=== PATIENT | female | born 1975 | race Caucasian/White ===

== ENCOUNTER → 2017-01-10 | Outpatient (CLI) | payer BC ==
--- NOTE | 2017-01-11 10:19 | MM ---
Reason for exam: screening (asymptomatic). Last mammogram was performed 6 months ago. History: Took hormonal contraceptives for 14 years. Physical Findings: A clinical breast exam by your physician is recommended on an annual basis and results should be correlated with mammographic findings. MG 3D Screening Mammo W/Cad Bilateral CC and MLO view(s) were taken. Prior study comparison: July 05, 2016, right breast MG 3d diag mammo w/cad RT. December 29, 2015, right breast MG 3d work up w/cad RT. There are scattered fibroglandular densities. Focal asymmetry inner right CC view is stable. No significant changes when compared with prior studies. ASSESSMENT: Benign, BI-RAD 2 RECOMMENDATION: Routine screening mammogram of both breasts in 1 year.
== END | disposition home or self-care (01) ==
LOC: RADMAMWWP 09:01
PROVIDERS: ATTEND Obstetrics & Gynecology
DX: Z12.31 Encounter for screening mammogram for malignant neoplasm of breast (principal)
CPT/HCPCS: 77063; G0202

== ENCOUNTER → 2018-01-23 | Outpatient (CLI) | payer BC ==
--- NOTE | 2018-01-28 10:55 | MM ---
Reason for exam: screening (asymptomatic). Last mammogram was performed 1 year ago. History: Took hormonal contraceptives for 14 years. Physical Findings: A clinical breast exam by your physician is recommended on an annual basis and results should be correlated with mammographic findings. MG 3D Screening Mammo W/Cad Bilateral CC and MLO view(s) were taken. Prior study comparison: January 10, 2017, bilateral MG 3d screening mammo w/cad. July 05, 2016, right breast MG 3d diag mammo w/cad RT. There are scattered fibroglandular densities. No suspicious abnormality. No significant changes when compared with prior studies. ASSESSMENT: Negative, BI-RAD 1 RECOMMENDATION: Routine screening mammogram of both breasts in 1 year.
== END | disposition home or self-care (01) ==
LOC: RADMAMWWP 12:08
PROVIDERS: ATTEND Obstetrics & Gynecology
DX: Z12.31 Encounter for screening mammogram for malignant neoplasm of breast (principal)
CPT/HCPCS: 77063; 77067

== ENCOUNTER → 2019-01-29 | Outpatient (CLI) | payer BC ==
--- NOTE | 2019-01-30 11:05 | MM ---
Reason for exam: screening (asymptomatic). Last mammogram was performed 1 year ago. History: Took hormonal contraceptives for 14 years. Physical Findings: A clinical breast exam by your physician is recommended on an annual basis and results should be correlated with mammographic findings. MG 3D Screening Mammo W/Cad Bilateral CC and MLO view(s) were taken. Prior study comparison: January 23, 2018, bilateral MG 3d screening mammo w/cad. January 10, 2017, bilateral MG 3d screening mammo w/cad. There are scattered fibroglandular densities. There is no discrete abnormality. ASSESSMENT: Negative, BI-RAD 1 RECOMMENDATION: Routine screening mammogram of both breasts in 1 year.
== END | disposition home or self-care (01) ==
LOC: RADMAMWWP 08:09
PROVIDERS: ATTEND Obstetrics & Gynecology
DX: Z12.31 Encounter for screening mammogram for malignant neoplasm of breast (principal)
CPT/HCPCS: 77063; 77067

== ENCOUNTER → 2020-03-31 | Outpatient (CLI) | payer BC ==
--- NOTE | 2020-03-31 10:45 | XR ---
EXAMINATION TYPE: XR chest 2V DATE OF EXAM: 03/31/2020 CLINICAL HISTORY: Dyspnea. Right-sided chest pain a few weeks ago. TECHNIQUE: Frontal and lateral views of the chest are obtained. COMPARISON: None FINDINGS: The cardiomediastinal silhouette is within normal limits for size. Pulmonary vasculature i s normal. There is no focal air space opacity, pleural effusion, or pneumothorax seen. The osseous st ructures are intact. Degenerative changes of the spine. IMPRESSION: No acute cardiopulmonary process.
== END | disposition home or self-care (01) ==
LOC: RADXRMAIN 09:24
PROVIDERS: ATTEND Family Medicine
DX: R06.00 Dyspnea, unspecified (principal)
CPT/HCPCS: 71046

== ENCOUNTER → 2020-03-31 | Outpatient (CLI) | payer BC ==
--- NOTE | 2020-04-01 12:15 | MM ---
Reason for exam: screening (asymptomatic). Last mammogram was performed 1 year and 2 months ago. History: Taking hormonal contraceptives for 24 years. Physical Findings: A clinical breast exam by your physician is recommended on an annual basis and results should be correlated with mammographic findings. MG 3D Screening Mammo W/Cad Bilateral CC and MLO view(s) were taken. Prior study comparison: January 29, 2019, bilateral MG 3d screening mammo w/cad. January 23, 2018, bilateral MG 3d screening mammo w/cad. There are scattered fibroglandular densities. Benign appearing bilateral calcifications. ASSESSMENT: Benign, BI-RAD 2 RECOMMENDATION: Routine screening mammogram of both breasts in 1 year.
== END | disposition home or self-care (01) ==
LOC: RADMAMWWP 09:02
PROVIDERS: ATTEND Obstetrics & Gynecology
DX: Z12.31 Encounter for screening mammogram for malignant neoplasm of breast (principal)
CPT/HCPCS: 77063; 77067

== ENCOUNTER → 2020-05-27 | Outpatient (CLI) | payer BC ==
[2020-05-27 13:45] LABS: Basophils % (A) 1 %; Eosinophils # (A) 0.1 k/uL (0-0.7); Eosinophils % (A) 1 %; HCT 32.8 % (34.0-46.0); HGB 10.1 gm/dL (11.4-16.0); Hypochromasia Moderate; Lymphocytes # (A) 1.9 k/uL (1.0-4.8); Lymphocytes % (A) 26 %; MCH 24.7 pg (25.0-35.0); MCHC 30.7 g/dL (31.0-37.0); MCV 80.7 fL (80.0-100.0); Mean Platelet Volume 8.5; Monocytes # (A) 0.4 k/uL (0-1.0); Monocytes % (A) 6 %; Neutrophils # (A) 4.6 k/uL (1.3-7.7); Neutrophils % (A) 64 %; Platelet Count 278 k/uL (150-450); RBC 4.06 m/uL (3.80-5.40); RDW 14.8 % (11.5-15.5); WBC 7.2 k/uL (3.8-10.6)
== END | disposition home or self-care (01) ==
LOC: LABWHC1 13:00
PROVIDERS: ATTEND Obstetrics & Gynecology
DX: Z01.818 Encounter for other preprocedural examination (principal); N92.1 Excessive and frequent menstruation with irregular cycle
CPT/HCPCS: 36415; 85025

== ENCOUNTER → 2020-06-01 | Day surgery (SDC) | payer BC ==
[2020-05-26 14:08] VITALS: BMI 26.9
--- NOTE | 2020-05-31 14:37 | HP ---
HISTORY AND PHYSICAL HISTORY OF PRESENT ILLNESS: The patient is a 44-year-old 2, para 2-0-0-2, who presents with a history of significantly heavy bleeding as well as some irregular bleeding at this time as well. This has been ongoing for some time and the patient has requested definitive therapy with diagnostic hysteroscopy and NovaSure endometrial ablation. PAST MEDICAL HISTORY: Significant only for a history of kidney stones as well as occasional constipation. PAST SURGICAL HISTORY: Significant for a LEEP procedure in the past as well as lithotripsy. There were no anesthetic concerns at this point. OBSTETRICAL HISTORY: 2, para 2-0-0-2 with 2 term vaginal deliveries without complications. Method of contraception is vasectomy. GYNECOLOGIC HISTORY: Unremarkable with no history of any infections to include STDs. She has remote history of LEEP procedure for abnormal cervical findings as noted above. FAMILY HISTORY: Noncontributory. SOCIAL HISTORY: The patient is and works as a nurse at [employer]. She is a nonsmoker and denies any alcohol or any other social concerns. CURRENT MEDICATIONS: Include Apri daily for control of menorrhagia. She additionally takes a multivitamin daily as well as biotin daily. ALLERGIES: SULFA causes a rash. REVIEW OF SYSTEMS: Confined to history of present illness. PHYSICAL EXAMINATION: Vital signs are stable and the patient is afebrile. In general, this is a well- developed, well-nourished white female in no acute distress. Her heart has a regular rhythm and rate without murmur. Her lungs are clear to auscultation bilaterally in all tran. Her abdomen is nondistended, has normoactive bowel sounds, soft, nontender, without any palpable masses, hepatosplenomegaly, or hernias. Her extremities are without any cyanosis, clubbing, or edema and are nontender to palpation bilaterally. Pelvic examination demonstrates normal external genitalia and the BUS with normal vaginal mucosa and cervix. There is no cervical motion tenderness. Uterus is approximately 5 weeks in size, mid plane, mobile, nontender, normal in shape. The adnexa are normal and nontender without mass bilaterally. ASSESSMENT AND PLAN: Menometrorrhagia. After discussion of options for treatment, the patient has requested diagnostic hysteroscopy with NovaSure endometrial ablation. The risks and complications of the procedure have been discussed at length including the risks for bleeding, bleeding requiring transfusion, infection, injury to local structures to specifically include uterine perforation, Asherman syndrome, and potential subsequent hematometra. She understands all this and has agreed to proceed. We are scheduled for the morning of June 01, 2020 for the procedures as outlined above. MMODL / IJN: [id number] /
[~2020-06-01] MED LIST: ACETAMINOPHEN TAB 500 MG TAB ONE; ACETAMINOPHEN TAB 500 MG TAB PO ONE; Acetaminophen-Codeine 300-30mg TAB PO PRN; DEXAMETHASONE SOD PHOSPHATE 10 MG/ML 1 ML VIAL IV ONE; HYDROmorphone 0.5 MG/0.5 ML SYRINGE IVP PRN; IBUPROFEN 600 MG TAB PO PRN; KETOROLAC 15 MG/ML 1 ML VIAL IVP PRN; KETOROLAC 15 MG/ML 1 ML VIAL ONE; LACTATED RINGERS 1,000 ML IV ONE; LACTATED RINGERS 1,000 ML IV SCH; LIDOCAINE 1% (10MG/ML) FOR IV START INTRADERMA PRN; LIDOCAINE 1% INJ 10MG/ML (20 ML MDV) ONE; METOCLOPRAMIDE 5 MG/ML 2 ML VIAL IVP PRN; MIDAZOLAM 2 MG/2 ML VIAL IV PRN; MIDAZOLAM 2 MG/2 ML VIAL ONE; ONDANSETRON 4 MG/2 ML VIAL IVP ONE; ONDANSETRON 4 MG/2 ML VIAL IVP PRN; PROPOFOL 10 MG/ML 20 ML VIAL IV ONE; Pre Op ABX Message 1 EACH MISC MISCELLANE ONE; SIMETHICONE 80 MG CHEWABLE PO PRN; diphenhydrAMINE 50 MG/ML 1 ML VIAL IVP PRN; fentaNYL (PF) 50 MCG/ML 2 ML AMP IV PRN; fentaNYL (PF) 50 MCG/ML 2 ML AMP ONE
[2020-06-01 09:59] VITALS: RESP 16; TEMP 97.1
--- NOTE | 2020-06-01 10:03 | P.OP ---
Date of Procedure: 06/01/20 Preoperative Diagnosis: 1. Menometrorrhagia #2. Anemia Postoperative Diagnosis: Same Procedure(s) Performed: #1. Diagnostic hysteroscopy #2. NovaSure endometrial ablation Anesthesia: other (Gen. by facemask) Surgeon: Cullen Marti Estimated Blood Loss (ml): 5 IV fluids (ml): 100 Urine output (ml): 75 Pathology: none sent Condition: stable Disposition: PACU Operative Findings: Preoperative pelvic examination demonstrated a 4-5 week midplane to slightly anteverted mobile normal shaped uterus with normal adnexa bilaterally. Intraoperatively, the uterus sounded to approximately 9 cm while the cervix was approximate 4 cm in length. Using the hysteroscope, the bilateral tubal ostia were seen though, at the left tubal ostia there appeared to be either a small polypoid structure or a small sub-mucosal fibroid, perhaps 1 cm in size. Attempts to remove it with a curet or polyp forceps were unsuccessful. As result it was left in place. The settings for the NovaSure tool where a length of 5.0 cm, a width of 4.4 cm for a total power 121 W. After a total run time of 57 seconds, the base unit read "procedure complete." The postprocedural result with the hysteroscope appeared to be excellent. The patient is a candidate for a vaginal hysterectomy should it become necessary in the future. Description of Procedure: The patient was prepped and draped in usual fashion after general anesthesia was administered by the anesthesiologist. A weighted speculum was placed and the bladder drained of approximately 75 mL of clear abiodun urine. The anterior lip of the cervix was grasped with a single-tooth tenaculum and the cervix and uterus sounded to measurements of 4 and 9 cm respectively. Serial dilation was carried out to admit the diagnostic hysteroscope which was placed in the fundus and the cavity distended with saline. The findings are as noted above. There was no apparent pathology aside from the possible small polypoid or submucosal fibroid structure noted just midline and anterior to the left tubal ostia. Attempts to remove it with the polyp forceps and a curet were unsuccessful. As result, it was left in place and the NovaSure tool placed in the endometrial cavity after setting the hysteroscope aside. The tool was opened and seated well. The settings were a length of 5.0 cm with a width of 4.4 cm for a total power 121 W. The cavity check was attempted and passed without difficulty and the tool was enabled. The run was started. After a total run time of 57 seconds, the base unit read "procedure complete." It was closed, removed, and discarded and the diagnostic hysteroscope replaced with what appeared to be an excellent result. The area of the potential polypoid or fibroid structure appeared to have been completely ablated. All instrumentation was then removed. There was no ongoing bleeding from the tenaculum site or the cervix. Estimated blood loss for the entire case was 5 mL or less. There are no complications. All sponge, instrument, and needle counts were correct. The patient tolerated the procedure well and proceeded to the recovery room in stable condition.
[2020-06-01 11:36] VITALS: PULSE 60
[2020-06-01 12:20] VITALS: BP 158/72
== END | disposition home or self-care (01) ==
LOC: OR 08:46
PROVIDERS: ATTEND Obstetrics & Gynecology
DX: N92.1 Excessive and frequent menstruation with irregular cycle (principal); D64.9 Anemia, unspecified; Z87.442 Personal history of urinary calculi; K59.00 Constipation, unspecified; Z79.3 Long term (current) use of hormonal contraceptives; Z98.890 Other specified postprocedural states; Z88.2 Allergy status to sulfonamides
CPT/HCPCS: 81025; 58563; J2250; J1100; J2405; J2001; J3010; J1885; J2704

== ENCOUNTER → 2021-04-08 | Outpatient (CLI) | payer BC ==
--- NOTE | 2021-04-11 10:49 | MM ---
Reason for exam: screening (asymptomatic). Last mammogram was performed 1 year ago. History: Taking hormonal contraceptives for 24 years. Physical Findings: A clinical breast exam by your physician is recommended on an annual basis and results should be correlated with mammographic findings. MG 3D Screening Mammo W/Cad Bilateral CC and MLO view(s) were taken. Prior study comparison: March 31, 2020, bilateral MG 3d screening mammo w/cad. January 29, 2019, bilateral MG 3d screening mammo w/cad. There are scattered fibroglandular densities. There is no discrete abnormality. No significant changes when compared with prior studies. ASSESSMENT: Negative, BI-RAD 1 RECOMMENDATION: Routine screening mammogram of both breasts in 1 year.
== END | disposition home or self-care (01) ==
LOC: RADMAMWWP 08:45
PROVIDERS: ATTEND Obstetrics & Gynecology
DX: Z12.31 Encounter for screening mammogram for malignant neoplasm of breast (principal)
CPT/HCPCS: 77063; 77067

== ENCOUNTER → 2022-04-27 | Outpatient (CLI) | payer BC ==
--- NOTE | 2022-04-28 19:53 | MM ---
Reason for Exam: Screening (asymptomatic). Last mammogram was performed 1 year(s) and 1 month(s) ago. Patient History: Menarche at age 10. First Full-Term at age 28. Patient used Hormonal Contraceptives for 24 years. Last menstrual period: 04/14/2022 Risk Values: Sunita 5 year model risk: 1.0%. NCI Lifetime model risk: 11.4%. Prior Study Comparison: 01/29/2019 Bilateral Screening Mammogram, [facility]. 03/31/2020 Bilateral Screening Mammogram, [facility]. 04/08/2021 Bilateral Screening Mammogram, [facility]. Tissue Density: There are scattered fibroglandular densities. Findings: Analyzed By CAD. There is no suspicious group of microcalcifications or suspicious mass in either breast. Overall Assessment: Negative, BI-RAD 1 Management: Screening Mammogram of both breasts in 1 year. 1. Patient should continue monthly self breast exams. 2. A clinical breast exam by your physician is recommended on an annual basis. 3. This exam should not preclude additional follow-up of suspicious palpable abnormalities. Electronically signed and approved by: Linda Stark M.D. Radiologist
== END | disposition home or self-care (01) ==
LOC: RADMAMWWP 07:22
PROVIDERS: ATTEND Obstetrics & Gynecology
DX: Z12.31 Encounter for screening mammogram for malignant neoplasm of breast (principal)
CPT/HCPCS: 77063; 77067

== ENCOUNTER → 2023-05-10 | Outpatient (CLI) | payer BC ==
--- NOTE | 2023-05-11 08:58 | MM ---
Reason for Exam: Screening (asymptomatic). Last screening mammogram was performed 12 month(s) ago. Patient History: Menarche at age 10. First Full-Term at age 28. Premenopausal. Patient used Hormonal Contraceptives for 24 years. Risk Values: Sunita 5 year model risk: 1.1%. NCI Lifetime model risk: 11.3%. Prior Study Comparison: 03/31/2020 Bilateral Screening Mammogram, [facility]. 04/08/2021 Bilateral Screening Mammogram, [facility]. 04/27/2022 Bilateral MG 3D screening mammo w/cad, [facility]. Tissue Density: The breast tissue is almost entirely fat. Findings: Analyzed By CAD. There is no suspicious group of microcalcifications or new suspicious mass in either breast. Overall Assessment: Negative, BI-RAD 1 Management: Screening Mammogram of both breasts in 1 year. . Patient should continue monthly self-breast exams. A clinical breast exam by your physician is recommended on an annual basis. This exam should not preclude additional follow-up of suspicious palpable abnormalities. Note on Sunita scores and lifetime risk: 1. A Sunita score greater than 3% is considered moderate risk. If this is the case, consider specialist referral to assess eligibility for a risk reducing agent. 2. If overall lifetime risk for the development of breast cancer is 20% or higher, the patient may qualify for future screening with alternating mammogram and breast MRI. Electronically signed and approved by: Mario Miguel M.D. Radiologis
== END | disposition home or self-care (01) ==
LOC: RADMAMWWP 07:21
PROVIDERS: ATTEND Obstetrics & Gynecology
DX: Z12.31 Encounter for screening mammogram for malignant neoplasm of breast (principal)
CPT/HCPCS: 77063; 77067

== ENCOUNTER → 2024-05-15 | Outpatient (CLI) | payer BC ==
--- NOTE | 2024-05-16 08:39 | MM ---
Reason for Exam: Screening (asymptomatic). Last screening mammogram was performed 12 month(s) ago. Patient History: Menarche at age 10. First Full-Term at age 28. Premenopausal. Patient used Hormonal Contraceptives for 24 years. Risk Values: Sunita 5 year model risk: 1.1%. NCI Lifetime model risk: 11.1%. Prior Study Comparison: 04/08/2021 Bilateral Screening Mammogram, [facility]. 04/27/2022 Bilateral MG 3D screening mammo w/cad, [facility]. 05/10/2023 Bilateral MG 3D screening mammo w/cad, [facility]. Tissue Density: There are scattered areas of fibroglandular density. Findings: Analyzed By CAD. There is no suspicious group of microcalcifications. There is a 5 mm nodule in the central margin of the right breast. Recommend spot compression view. Overall Assessment: Incomplete: need additional imaging evaluation, BI-RAD 0 Management: Diagnostic Mammogram of the right breast. . Patient should continue monthly self-breast exams. A clinical breast exam by your physician is recommended on an annual basis. This exam should not preclude additional follow-up of suspicious palpable abnormalities. Note on Sunita scores and lifetime risk: 1. A Sunita score greater than 3% is considered moderate risk. If this is the case, consider specialist referral to assess eligibility for a risk reducing agent. 2. If overall lifetime risk for the development of breast cancer is 20% or higher, the patient may qualify for future screening with alternating mammogram and breast MRI. [facility], , 05/16/2024 8:36 AM. Electronically signed and approved by: Dami Jones M.D. Radiologis
== END | disposition home or self-care (01) ==
LOC: RADMAMWWP 07:16
PROVIDERS: ATTEND Obstetrics & Gynecology
DX: Z12.31 Encounter for screening mammogram for malignant neoplasm of breast
CPT/HCPCS: 77063; 77067

== ENCOUNTER → 2024-05-21 | Outpatient (CLI) | payer BC ==
--- NOTE | 2024-05-21 14:16 | MM ---
Reason for Exam: Additional evaluation requested from abnormal screening. Last screening mammogram was performed less than 1 month ago. Patient History: Menarche at age 10. First Full-Term at age 28. Premenopausal. Patient used Hormonal Contraceptives for 24 years. Risk Values: Sunita 5 year model risk: 1.1%. NCI Lifetime model risk: 11.1%. Prior Study Comparison: 01/23/2018 Bilateral Screening Mammogram, [facility]. 03/31/2020 Bilateral Screening Mammogram, [facility]. 04/27/2022 Bilateral MG 3D screening mammo w/cad, [facility]. 05/10/2023 Bilateral MG 3D screening mammo w/cad, [facility]. 05/15/2024 Bilateral MG 3D screening mammo w/cad, [facility]. Tissue Density: Right: The breasts are heterogeneously dense, which may obscure small masses. Findings: Analyzed By CAD. Tiny 3 mm nodular density upper outer right breast unchanged dating back to March 31, 2020 and is presumed benign. No suspicious nodules or masses seen. Suspect microcalcifications. Overall Assessment: Benign, BI-RAD 2 Management: Screening Mammogram of both breasts in 1 year. . Results were given to the patient verbally at the time of exam. Patient should continue monthly self-breast exams. A clinical breast exam by your physician is recommended on an annual basis. This exam should not preclude additional follow-up of suspicious palpable abnormalities. Note on Sunita scores and lifetime risk: 1. A Sunita score greater than 3% is considered moderate risk. If this is the case, consider specialist referral to assess eligibility for a risk reducing agent. 2. If overall lifetime risk for the development of breast cancer is 20% or higher, the patient may qualify for future screening with alternating mammogram and breast MRI. [facility], , 05/21/2024 2:10 PM. Electronically signed and approved by: Mario Miguel M.D. Radiologis
== END | disposition home or self-care (01) ==
LOC: RADMAMWWP 13:35
PROVIDERS: ATTEND Obstetrics & Gynecology
DX: R92.8 Other abnormal and inconclusive findings on diagnostic imaging of breast
CPT/HCPCS: 77061; 77065